=== PATIENT | female | born 1935 | race Caucasian/White ===

== ENCOUNTER 2019-08-27 17:20 | Emergency (ER) | payer MEDICARE ==
--- NOTE | 2019-08-27 17:52 | PHYS DOC ---
Past History Past Medical History: Cancer Adult General Chief Complaint Chief Complaint: URINE CATHETER PROBLEM".. " I had surgery today at [facility]... and I have not been able to urinate... I am so uncomfortable.... I called the [facility] and Nurse complaint evaluation officer said to come to nearest ED and have a gray plasced... " HPI HPI Patient is a 84 year old female who presents with above hx and complaints of urinary retention after pulling out gray post surgery on bladder today at [facility]. Patient reportedly had a small mass removed from the neck of the bladder at [place]. . Patient was discharged after the surgery with Gray. Patient accidentally pulled Gray out while at home tonight. Patient has not been able to urinate since the Gray came out. Patient complaining of lower abdomen distention. Patient requesting a Gray catheter to be placed. Discussed pt. presentation with Dr. Hwang complaint evaluation officer for [facility]. He reviewed Pt. record and advised to place a gray. . placed. With return of approximately 300 cc of urine in bag. Some urine loss during placement. Pt. reports marked relief of pelvic pain. Review of Systems Review of Systems Constitutional: Denies fever or chills [] Eyes: Denies change in visual acuity, redness, or eye pain [] HENT: Denies nasal congestion or sore throat [] Respiratory: Denies cough or shortness of breath [] Cardiovascular: No additional information not addressed in HPI [] GI: Denies abdominal pain, nausea, vomiting, bloody stools or diarrhea [] : Complaints of urine retention, dysuria and hematuria after surgery today at [facility] Musculoskeletal: Denies back pain or joint pain [] Integument: Denies rash or skin lesions [] Neurologic: Denies headache, focal weakness or sensory changes [] Endocrine: Denies polyuria or polydipsia [] All other systems were reviewed and found to be within normal limits, except as documented in this note. Family History Family History Noncontributory Current Medications Current Medications See nursing for home medications Allergies Allergies Codeine, cortisone, tramadol Physical Exam Physical Exam Constitutional: in acute distress, non-toxic appearance. [] HENT: Normocephalic, atraumatic, bilateral external ears normal, oropharynx moist, no oral exudates, nose normal. [] Eyes: PERRLA, EOMI, conjunctiva normal, no discharge. [] Neck: Normal range of motion, no tenderness, supple, no stridor. [] Cardiovascular:Heart rate regular rhythm, no murmur [] Lungs & Thorax: Bilateral breath sounds clear to auscultation [] Abdomen: Bowel sounds normal, soft, lower pelvic tenderness, no masses, no pulsatile masses. Obvious distended bladder. Skin: Warm, dry, no erythema, no rash. [] Back: No tenderness, no CVA tenderness. [] Extremities: No tenderness, no cyanosis, no clubbing, ROM intact, no edema. Arthritic changes. Neurologic: Alert and oriented X 3, normal motor function, normal sensory function, no focal deficits noted. [] Psychologic: Affect anxious., judgement normal, mood normal. [] EKG EKG [] Radiology/Procedures Radiology/Procedures [] Course & Med Decision Making Course & Med Decision Making Pertinent Labs and Imaging studies reviewed. (See chart for details) Patient continue push fluids. Monitor for urinary retention even after the catheter is placed. Patient follow-up primary care. Patient follow-up with uro logy. Patient return if any concerns. Impression: 1. Acute urinary retention post surgery: Dragon Disclaimer Dragon Disclaimer This electronic medical record was generated, in whole or in part, using a voice recognition dictation system. Departure Departure: Disposition: 01 HOME/RESIDENCE PRIOR TO ADM Condition: STABLE Referrals: PCP,NO (PCP) Dragon Disclaimer This chart was dictated in whole or in part using Voice Recognition software in a busy, high-work load, and often noisy Emergency Department environment. It may contain unintended and wholly unrecognized errors or omissions. Dragon Disclaimer This chart was dictated in whole or in part using Voice Recognition software in a busy, high-work load, and often noisy Emergency Department environment. It may contain unintended and wholly unrecognized errors or omissions. JANEL CANO MD Aug 27, 2019 17:52
[2019-08-27 18:50] VITALS: BP 196/76
== END 2019-08-27 19:25 | disposition home or self-care (01) ==
LOC: ER 17:20
DX: N99.89 Other postprocedural complications and disorders of genitourinary system (principal); R33.8 Other retention of urine; R30.0 Dysuria; R14.0 Abdominal distension (gaseous); Z98.890 Other specified postprocedural states
CPT/HCPCS: 51702; 99284

== ENCOUNTER → 2021-03-29 | Outpatient (CLI) | payer MEDICARE ==
[~2021-03-29] MED LIST: IOHEXOL 300 MG/ML 75 ML VIAL. IV ONE
--- NOTE | 2021-03-30 07:33 | RAD ---
CT PELVIS WITHOUT AND WITH IV CONTRAST History: Bladder cancer. Comparison: None. Technique: CT of the pelvis before and after intravenous contrast. Findings: Cholecystectomy changes with mild dilation of the common bile duct. Partially visualized liver is unr emarkable. The visualized renal lower poles, inferior pancreas and lower pole of the spleen are unrem arkable. There is no ureterectasis or ureteral mass. The bladder is mostly decompressed which limits evaluation for masses, however the lumen wall is slightly irregular. Visualized small bowel is unrema rkable. There is mild sigmoid diverticulosis. Heavy atherosclerotic calcification of the aorta and il iac arteries. No pelvic free fluid. Uterus and adnexa are unremarkable. No pelvic adenopathy. Degener ative changes of the lower lumbar spine without suspicious osseous lytic or sclerotic lesion. Soft ti ssues are unremarkable. Impression: 1. Provided history of bladder cancer with slightly heterogeneous bladder luminal wall however evalu ation is significantly limited by bladder decompression. No outer wall abnormality. No adenopathy. No evidence of metastatic disease within the pelvis. ------ Exposure: One or more of the following individualized dose reduction techniques were utilized for thi s examination: 1. Automated exposure control 2. Adjustment of the mA and/or kV according to patient size 3. Use of iterative reconstruction technique. Electronically signed by: Dario Vallejo MD (03/30/2021 7:31 AM) [facility]
== END ==
LOC: CT 13:05
PROVIDERS: ATTEND Internal Medicine Hematology & Oncology
DX: K57.30 Diverticulosis of large intestine without perforation or abscess without bleeding (principal); I70.0 Atherosclerosis of aorta; I70.8 Atherosclerosis of other arteries; M47.816 Spondylosis without myelopathy or radiculopathy, lumbar region; Z85.51 Personal history of malignant neoplasm of bladder; Z90.49 Acquired absence of other specified parts of digestive tract
CPT/HCPCS: 72194; Q9967